=== PATIENT | male | born 1985 | race African-American/Black ===

== ENCOUNTER 2022-02-04 15:02 | Emergency (ER) | payer BC, OTHER, SELFPAY ==
[2022-02-04] MEDS ORDERED: Sodium Chloride 0.9% 1,000 ML ONE (15:53)
== END 2022-02-04 16:44 | disposition home or self-care (01) ==
LOC: MADERS 15:02
DX: T67.5XXA Heat exhaustion, unspecified, initial encounter (principal); E86.0 Dehydration; E66.01 Morbid (severe) obesity due to excess calories; Z87.891 Personal history of nicotine dependence; X30.XXXA Exposure to excessive natural heat, initial encounter
CPT/HCPCS: 99283; J7050